=== PATIENT | female | born 1975 | race African-American/Black ===

== ENCOUNTER 2019-01-25 05:54 | Day surgery (SDC) | payer OTHER ==
[2019-01-25] MEDS ORDERED: POLYMYXIN/BACITRACIN 1L IRRIG (07:03)
[2019-01-25] MEDS ORDERED: MIDAZOLAM 1 MG/ML 2 ML INJ ×2 (07:29→09:55)
[2019-01-25] MEDS ORDERED: ROPIVACAINE 0.5 % 30 ML VIAL (07:30)
[2019-01-25] MEDS ORDERED: HYDROmorphONE 1 MG/5 ML IV SYRINGE IV ×2 (07:30)
[2019-01-25] MEDS ORDERED: PROPOFOL 20 ML (07:57)
[2019-01-25] MEDS ORDERED: ROCURONIUM 50 MG INJ ×2 (07:57→08:11)
[2019-01-25] MEDS ORDERED: HYDROmorphONE 2 MG/ML SYG (07:57)
[2019-01-25] MEDS ORDERED: LIDOCAINE 2% (SDV) 5 ML INJ (07:57)
[2019-01-25] MEDS ORDERED: KETOROLAC 30 MG INJ (08:08)
[2019-01-25] MEDS ORDERED: CEFAZOLIN 1 GM INJ (08:08)
[2019-01-25] MEDS: POLYMYXIN/BACITRACIN 1L IRRIG IRR (08:29)
[2019-01-25] MEDS ORDERED: ONDANSETRON 4 MG INJ (09:45)
[2019-01-25] MEDS ORDERED: FAMOTIDINE 20 MG INJ (09:45)
[2019-01-25] MEDS ORDERED: PROVENTIL HFA 6.7GM INHALER (09:46)
[2019-01-25] MEDS ORDERED: SUGAMMADEX SODIUM 200 MG/2 ML VIAL IV (09:48)
[2019-01-25] MEDS: NEOMYC/POLYMYX/BACIT 30 GM OINT (09:50)
[2019-01-25] MEDS: KETOROLAC 30 MG INJ IV (10:30)
[2019-01-25] MEDS: HYDROmorphONE 1 MG/5 ML IV SYRINGE IV (10:52)
[2019-01-25] MEDS: morphine 2 MG INJ IV (11:08)
== END 2019-01-25 13:11 | disposition home or self-care (01) ==
LOC: SDS 05:54
DX: S82.61XA Displaced fracture of lateral malleolus of right fibula, initial encounter for closed fracture (principal); S93.431A Sprain of tibiofibular ligament of right ankle, initial encounter; W08.XXXA Fall from other furniture, initial encounter; M65.871 Other synovitis and tenosynovitis, right ankle and foot
CPT/HCPCS: 27792; 73610-RT; 82306